=== PATIENT | male | born 1960 | race Caucasian/White ===

== ENCOUNTER 2018-08-20 14:44 | Emergency (ER) | payer MEDICARE, MEDICAID, SELFPAY ==
[2018-08-20 14:46] VITALS: BP 132/84; PULSE 89; RESP 16; TEMP 36.7; O2SAT 97; BMI 24.3
--- NOTE | 2018-08-20 15:20 | CT_ITS ---
STUDY: CT BRAIN WITHOUT CONTRAST REASON FOR EXAM: Male, 57 years old. Left forearm numbness and tingling RADIATION DOSAGE (If Supplied By Facility): CTDIvol = ( 44.99 ) mGy, DLP = ( 779.24 ) mGycm TECHNIQUE: Transaxial CT imaging of the brain was performed without administration of intravenous contrast material. Individualized dose optimization techniques were used for this CT. COMPARISON: No relevant priors. FINDINGS: Normal soft tissue structures. Normal calvarium. Normal size ventricles and extra-axial spaces for the patient's age. Normal white matter tracts of the cerebral hemispheres. Normal basal ganglia and thalami. Normal brainstem. Normal cerebellum. Partial empty sella deformity of uncertain significance. There is no intracranial hemorrhage. There are no findings of an acute ischemic infarction. Small mucous retention cyst in left maxillary sinus and moderate mucosal thickening on the right CT/Brain/Head without Contrast IMPRESSION: Partial empty sella deformity likely of no significance. Otherwise normal unenhanced CT scan of the brain. If concern for acute infarct MRI recommended Electronically Signed: Royce Anderson MD at 16:56 EDT , Service support ,
--- NOTE | 2018-08-20 15:23 | ED.VISSUMM ---
- ER Visit Summary Date of Service: 08/20/18 Chief Complaint: Left forearm and hand numbness History of Present Illness: The patient is a 57 M history of type 2 insulin-dependent diabetes with peripheral arterial disease of his lower extremities with arterial stents no prior history of TIA or stroke. Patient states he slept on the floor last night which he does regularly. When he awoke at 6 AM this morning he had numbness in his left forearm from the elbow to the finger tips of his left small and ring finger on the ulnar side only. No loss of strength. No change in speech. No headache. No head trauma. No trouble seeing. No trouble walking. No weakness in either upper or lower extremities. No prior history. The symptoms have now been going on for 9-1/2 hours approximately. Physical Examination: Vital signs are stable and afebrile. HEENT exam unremarkable. No facial droop. Normal speech. Pupils round react light. Extra motions are intact. No numbness neck nontender. Lungs clear to auscultation bilaterally. Heart regular rhythm no murmur rate about 80. Abdomen is soft. He had hernia surgery yesterday. He has normal postop incisional tenderness. Incisions are dry and clean. He is nondistended without peritoneal signs. Patient is moving all 4 extremities. He has equal symmetrical 5 out of 5 adult education professional strength. Equal radial pulses. He has dorsi plantar flexion intact. Normal range of motion both upper and lower extremities. His left forearm from the elbow to the tips of his ring and small fingertips. He has patient states numbness. He has normal motor strength in the left hand. Full flexion-extension. He has normal sensation on the radial side. Otherwise his neurologic exam is completely normal. His NIH score at most of 1 with numbness on the ulnar side of his left forearm, and ring and small finger. There is no loss of motor strength or range of motion. Test Results: He is diabetic his BG T was 85. CAT scan of the brain without contrast showed no acute abnormality. Read by the radiologist and reviewed by me. Emergency Department Course and Treatment: His exam is consistent with an ulnar nerve entrapment. Clinically this does not appear to be a stroke. No motor loss. Repeat exam patient is doing well at 1719. Exam is completely unchanged. He has no new neurological findings. He has been up walking because he was looking for something to eat. He had I discussed that I think he has not ulnar nerve neuropathy or compression issue. He did not want to be put on any medications at this time we discussed possibly putting him on prednisone. He did not want to do that and will follow-up. Treatment Plan: Ice to the left elbow. Follow-up with his doctor if not improving. Return if worse. Disposition: Discharge Impression: Left forearm numbness secondary to ulnar nerve compression History of insulin-dependent diabetes History of peripheral arterial disease This note was generated with Clinkation software. It may contain incorrect words, spelling, and punctuation that were not noted in review of the chart prior to signing ED Disposition - Plan for ED Patient: Referrals: Jacob Davis MD [Primary Care Provider] -
[2018-08-20 15:30] LABS: Bedside Glucose 85 mg/dL (70-110)
--- NOTE | 2018-08-20 17:30 | ED.DEP ---
ED Disposition - Plan for ED Patient: Disposition: Home or Assisted Living Referrals: Jacob Davis MD [Primary Care Provider] - 1 Week if not improving Additional Instructions: The numbness in her left forearm is more than likely secondary to compression of your ulnar nerve at your elbow. Ice to this area. You may take Motrin for inflammation. Do not take the Motrin if you restart your Plavix you should not take both at the same time. This should progressively improve if it does not you need to be evaluated obviously started having weakness, slurred speech or trouble walking he should return immediately. At this time the CAT scan was unremarkable. There are no signs of a stroke.
[2018-08-20 17:35] VITALS: BP 143/84; PULSE 78; RESP 16; O2SAT 98
== END 2018-08-20 17:43 | disposition home or self-care (01) ==
PROVIDERS: Emergency Provider Emergency Medicine; Family Provider Family Medicine; PCP Family Medicine
DX: G56.22 Lesion of ulnar nerve, left upper limb (principal); R20.0 Anesthesia of skin; E11.51 Type 2 diabetes mellitus with diabetic peripheral angiopathy without gangrene; Z79.4 Long term (current) use of insulin; Z79.84 Long term (current) use of oral hypoglycemic drugs; Z79.899 Other long term (current) drug therapy; Z72.0 Tobacco use
CPT/HCPCS: 70450; 82962; 99283

== ENCOUNTER 2018-08-30 10:16 | Emergency (ER) | payer MEDICARE, SELFPAY ==
[2018-08-30 10:17] VITALS: BP 150/80; PULSE 90; RESP 18; TEMP 36.4; O2SAT 99; BMI 24.0
--- NOTE | 2018-08-30 11:03 | ED.DCSUM_ITS ---
History of Present Illness Chief Complaint: Abd Pain Detail of Chief Complaint: He had a right inguinal hernia repair at [facility] on August 19 Informant: Patient Onset: Weeks Context: Gradual Onset Timing: Continuous Quality: ache Location: R groin Current Severity: Mild Maximum Severity: Mild Worsened by: movements Relieved by: nothing Associated Symptoms: Denies nausea or vomiting or abdominal pain. Last bowel movement was this Narrative: Allen is a 57-year-old male who had a right inguinal hernia repair at [facility] on August 19. He states the pain never improved from prior to surgery. His last bowel movement was this morning. He denies fever chills or nausea vomiting or abdominal distention. He complains of a chronic slow stream of urine. He denies dysuria or hematuria. Past Medical History - Allergies and Home Meds Allergies/Adverse Reactions: Allergies No Known Allergies Allergy (Verified 08/30/18 10:19) Primary Care Physician: Jacob Davis MD [Primary Care Provider] - Prior records reviewed: Yes Past Medical History: - - Type 2 diabetesHyperlipidemia Surgical History: herniorrhaphy - Right inguinal hernia repair Lives: Alone Smoking Status: Current every day smoker Alcohol: None Drugs: None Review of Systems General: Denies: Chills, Fever, Sweats Eyes: Denies: Visual changes - bilaterally, Diplopia ENT: Denies: Rhinorrhea, Sore throat Cardiovascular: Denies: Chest pain, Palpitations Respiratory: Denies: Dyspnea, Cough, Dyspnea on exertion Gastrointestinal: Denies: Abdominal pain, Nausea, Vomiting, Diarrhea, Melena, Hematochezia Genitourinary: Reports: - - Planes of a weak stream without dysuria. He complains of right inguinal fullness and pain that is been present since surgery.. Denies: Dysuria, Hematuria, Frequency Musculoskeletal: Denies: Back pain, Extremity Pain Skin: Denies: Rash, Wounds Neurological: Denies: Headache, Weakness, Numbness Physical Exam Vital Signs/Narrative: Vital Signs Temp Pulse Resp BP Pulse Ox 08/30/18 10:17 97.6 F L 90 18 150/80 H 99 Inital Vital Signs reviewed: Yes General: Well nourished, Well developed, No Acute Distress Head: Normocephalic, Atraumatic Eyes: Perrl, EOMI ENT: Moist mucous membranes, No rhinorrhea Neck: Supple, Nontender Cardiovascular: Regular rate, Regular rhythm, No murmurs Respiratory: No distress, CTA bilaterally, Chest nontender Abdomen: Soft, Nontender, Nondistended, Normal bowel sounds, - - Ecchymosis near the umbilical surgical site without tenderness or infection. : - - There is right inguinal firmness and swelling without redness or warmth. No reproducible scrotal tenderness or swelling present. Back: Nontender, Normal Inspection Extremities: Nontender, No edema Skin: Normal color, No rash Neurological: Alert, Oriented x3, Cranial nerves II-XII grossly intact, Normal Strength, Normal Sensation Psychological: Normal affect, Normal Mood Diagnostic/Tx/Re-eval - Medical Decision Making Patient was seen shortly after his arrival here. Laboratory tests, CAT scan, IV fluids and Toradol was ordered for him. While examining him he stated I am not going to get to see a doctor? I explained to him that Dr. Mckeon would be in shortly, the ED attending physician. Dr Mckeon was involved with another patient in the trauma room. Soon after, he left AGAINST MEDICAL ADVICE and said he was going to go to [facility] to see his surgeon. ED Disposition - Plan for ED Patient: Referrals: Jacob Davis MD [Primary Care Provider] -
--- NOTE | 2018-08-30 11:04 | ED.RN ---
PT DECIDED TO SIGN OUT AMA FORM SIGNED.
== END 2018-08-30 11:11 | disposition left against medical advice (07) ==
LOC: ED 11:04
PROVIDERS: Emergency Provider Nurse Practitioner; Family Provider Family Medicine; PCP Family Medicine
DX: R10.9 Unspecified abdominal pain (principal); Z98.890 Other specified postprocedural states; Z53.21 Procedure and treatment not carried out due to patient leaving prior to being seen by health care provider; F17.200 Nicotine dependence, unspecified, uncomplicated
CPT/HCPCS: 99282; J7040